=== PATIENT | female | born 2000 | race Hispanic/Latino ===

== ENCOUNTER 2022-03-25 08:15 | Emergency (ER) | payer MEDICAID, SELFPAY | END 2022-03-25 10:50 | disposition home or self-care (01) | LOC: ERS 08:15 | DX: U07.1 COVID-19 (principal) | CPT/HCPCS: 99284; U0003; U0005 ==

== ENCOUNTER 2024-04-02 17:23 | Emergency (ER) | payer BC, OTHER, SELFPAY ==
[2024-04-02 18:20] LABS: Pregnancy Test - Urine (BHCG) Negative (Negative); Pregu Control Background? CLEAR/WHITE (CLR/WHITE); Pregu Control Bar Appear? YES (CONTROL BAR); Specific Gravity 1.006 (1.002-1.036)
== END 2024-04-02 19:10 | disposition home or self-care (01) ==
LOC: ERS 17:23
DX: S00.83XA Contusion of other part of head, initial encounter (principal); S00.81XA Abrasion of other part of head, initial encounter; M54.2 Cervicalgia; V47.5XXA Car driver injured in collision with fixed or stationary object in traffic accident, initial encounter
CPT/HCPCS: 70450; 70486; 72125; 81025